=== PATIENT | male | born 1945 | race Caucasian/White ===

== ENCOUNTER → 2016-11-29 | Outpatient (CLI) | payer MEDICARE | END | disposition home or self-care (01) | LOC: CFH 07:55 | PROVIDERS: ATTEND Nurse Practitioner Family | DX: Z87.891 Personal history of nicotine dependence (principal) | CPT/HCPCS: 93978 ==

== ENCOUNTER 2017-01-06 19:52 | Day surgery (SDC) | payer MEDICARE ==
[~2017-01-06] VITALS: Ht 170.2 cm; Wt 103.6 kg
[2017-01-06] MEDS ORDERED: LIDOCAINE 1%, 20ML ONE (20:18)
[2017-01-06] MEDS ORDERED: CEFAZOLIN 1,000 MG ONE ×3 (20:18→23:57)
[2017-01-06] MEDS ORDERED: LIDOCAINE 1%, 10ML INFIL ONE (20:30)
[2017-01-06] MEDS ORDERED: LIDOCAINE 1%, 20ML INFIL ONE (20:30)
[2017-01-06] MEDS ORDERED: CEFAZOLIN 1,000 MG IM ONE (20:30)
[2017-01-06] MEDS ORDERED: MICROFIBRILLAR COLLAGEN 1 GM TP ONE (21:30)
[2017-01-06] MEDS ORDERED: LIDOCAINE/PF 1%, 30ML ONE (23:03)
[2017-01-06] MEDS ORDERED: MIDAZOLAM 1 MG/ML, 2ML ONE (23:48)
[2017-01-06] MEDS ORDERED: FENTANYL PF 100 MCG/2ML ONE ×2 (23:48)
[2017-01-06] MEDS ORDERED: NEOSTIGMINE 1 MG/ML, 10ML ONE (23:54)
[2017-01-06] MEDS ORDERED: PROPOFOL 10 MG/ML, 20ML ONE (23:54)
[2017-01-06] MEDS ORDERED: SUCCINYLCHOLINE 20 MG/ML, 10ML ONE (23:54)
[2017-01-06] MEDS ORDERED: DEXAMETHASONE 4 MG/ML, 1ML ONE ×2 (23:56)
[2017-01-07] MEDS ORDERED: KETOROLAC 30 MG/1 ML ONE (00:05)
[2017-01-07] MEDS ORDERED: ONDANSETRON 2MG/ML, 2ML ONE ×2 (00:05)
[2017-01-07] MEDS ORDERED: LIDOCAINE 1%, 20ML INFIL ONE (00:16)
[2017-01-07] MEDS ORDERED: PROMETHAZINE 25 MG/ML, 1ML IV PRN (00:30)
[2017-01-07] MEDS ORDERED: PROMETHAZINE 25 MG/ML, 1ML IM PRN (00:30)
[2017-01-07] MEDS ORDERED: ONDANSETRON 2MG/ML, 2ML IVPush PRN ×2 (00:30)
[2017-01-07] MEDS ORDERED: morphine SULFATE 10 MG/ML, 1ML IVPush PRN (00:30)
[2017-01-07] MEDS ORDERED: OXYcodone 5 MG/5 ML ORAL.SOL UDC PO PRN ×2 (00:30)
[2017-01-07] MEDS ORDERED: LABETALOL 5MG/ML, 20ML IV PRN (00:30)
[2017-01-07] MEDS ORDERED: FENTANYL PF 100 MCG/2ML IV PRN (00:30)
[2017-01-07] MEDS ORDERED: hydrALAzine 20 MG/ML, 1ML IV PRN (00:30)
[2017-01-07] MEDS ORDERED: HYDROmorphone 1 MG/ML, 1ML IV PRN (00:30)
[2017-01-07] MEDS ORDERED: HYDROcodone/APAP 5/325 TABLET PO PRN (00:30)
[2017-01-07] MEDS ORDERED: ACETAMINOPHEN 325 MG TABLET PO PRN ×2 (00:30)
[2017-01-07] MEDS ORDERED: MEPERIDINE/PF 25MG/0.5ML IVPush PRN (00:30)
[2017-01-07] MEDS ORDERED: OXYcodone 5 MG/5 ML ORAL.SOL UDC ONE (00:54)
[2017-01-07] MEDS ORDERED: ACETAMINOPHEN 650 MG/20.3 ML UDC ONE (00:54)
[2017-01-07 01:43] VITALS: BP 109/68
[2017-01-07 01:46] VITALS: BP 109/68
[2017-01-07 01:55] VITALS: BP 104/65
[2017-01-07] MEDS ORDERED: HYDR-3240 PO (02:01)
[2017-01-07] MEDS ORDERED: AMOX1TAB64 PO ×2 (02:01→02:08)
[2017-01-07 02:21] VITALS: BP 101/50
[2017-01-07 02:46] VITALS: BP 109/58
== END 2017-01-07 04:00 ==
LOC: ED 21:44 → EDIP 22:40 → SDC 22:40 → UNDOADMIN 22:40 → EDIP 01-07 01:30 → 4NOR 01-07 01:30 → UNDODISIN 01-07 04:00 → SDC 01-07 04:00
PROVIDERS: ATTEND Orthopaedic Surgery
DX: S68.113A Complete traumatic metacarpophalangeal amputation of left middle finger, initial encounter (principal); X58.XXXA Exposure to other specified factors, initial encounter; Y93.89 Activity, other specified; Y92.89 Other specified places as the place of occurrence of the external cause; Y99.8 Other external cause status
CPT/HCPCS: 12031; 26236; 73130; 96372; 99285; J0330; J0690; J1100; J1885; J2250; J2405; J2704; J2710; J3010; J3490